=== PATIENT | male | born 1975 | race Hispanic/Latino ===

== ENCOUNTER 2017-01-12 12:57 | Observation (INO) | payer BC ==
[~2017-01-12] VITALS: Ht 182.9 cm; Wt 94.3 kg
[~2017-01-12 12:57] MED LIST: LISI20TA11 PO
[2017-01-12 13:36] VITALS: BP 172/110; TEMP 98.5; Ht 182.9 cm; Wt 94.3 kg
--- NOTE | 2017-01-12 14:57 | NUR ---
RADIOLOGY AT BS. PT TRANSPORTED VIA TO RADIOLOGY. NAD NOTED.
[2017-01-12 15:15] LABS: POTASSIUM 4.1 mmol/L (3.6-5.2); SODIUM 137 mmol/L (136-145)
[2017-01-12 15:16] LABS: PARTIAL THROMBOPLASTIN TIME 22.8 SECONDS (24.5-33.6)
[2017-01-12 15:39] LABS: PLATELET COUNT 250 K/uL (142-355)
[2017-01-12 16:00] VITALS: BP 141/90; TEMP 99.2
[2017-01-12] MEDS ORDERED: OMEPRAZOLE40 MG PO (16:05)
[2017-01-12] MEDS ORDERED: PRAVACHOL20 MG PO (16:07)
[2017-01-12 20:00] VITALS: BP 114/70; TEMP 99
[2017-01-13] VITALS: BP 117/62; TEMP 98.5
[2017-01-13 04:00] VITALS: BP 117/61; TEMP 97.9
[2017-01-13 05:49] LABS: PLATELET COUNT 237 K/uL (142-355)
[2017-01-13 07:00] LABS: POTASSIUM 4.3 mmol/L (3.6-5.2); SODIUM 140 mmol/L (136-145)
[2017-01-13 08:00] VITALS: BP 112/71; TEMP 98.8
[2017-01-13 12:00] VITALS: BP 118/77; TEMP 98.1
[2017-01-13 16:00] VITALS: BP 136/80; TEMP 98.6
--- NOTE | 2017-01-13 19:10 | NUR ---
REVIEWED DISCHARGE INSTRUCTIONS WITH PATIENT AND HIS FAMILY. IV REMOVED, BANDAID APPLIED. EXPLAINED TO PATIENT THE IMPORTANCE OF REDUCING/STOPPING HIS ALCOHOL INTAKE AND EDUCATION PACKETS GIVEN. PATIENT VERBALIZES UNDERSTANDING OF ALL INSTRUCTIONS.
--- NOTE | 2017-01-13 19:20 | NUR ---
PATIENT ESCORTED TO HOSPITAL EXIT AND DISCHARGED HOME WITH FAMILY IN STABLE CONDITION.
== END 2017-01-13 19:20 | disposition home or self-care (01) ==
LOC: MED/SURG 12:57
PROVIDERS: ADMIT Family Medicine
DX: R07.89 Other chest pain (principal); I47.1 Supraventricular tachycardia; R53.83 Other fatigue
CPT/HCPCS: 36415; 36591; 80053; 80307; 82550; 82607; 82746; 83735; 84100; 84443; 84484; 85027; 85610; 85730; 93005; 96365; 96366; 96372; 96374; 96375; 99220; G0378; G0379; G0479; J1650; J1885; J3490

== ENCOUNTER 2021-06-20 07:53 | Outpatient (CLI) | payer BC ==
[~2021-06-20] VITALS: Ht 182.9 cm; Wt 96.2 kg
[~2021-06-20 07:53] MED LIST changes: +OMEPRAZOLE40 MG PO; +PRAVACHOL20 MG PO
== END 2021-06-20 18:50 | disposition home or self-care (01) ==
LOC: NM 07:53
PROVIDERS: ATTEND Specialist
DX: I48.20 Chronic atrial fibrillation, unspecified (principal); I10 Essential (primary) hypertension
CPT/HCPCS: A9500; J2785